=== PATIENT | female | born 1940 | race Caucasian/White ===

== ENCOUNTER 2018-05-06 08:30 | Day surgery (SDC) | payer OTHER | END 2018-05-06 16:45 | disposition home or self-care (01) | LOC: AMB-ENDOS 08:30 | DX: K62.4 Stenosis of anus and rectum (principal) ==

== ENCOUNTER 2018-07-14 05:20 | Day surgery (SDC) | payer OTHER | END 2018-07-14 10:10 | disposition home or self-care (01) | LOC: AMB-ENDOS 05:20 | DX: K57.30 Diverticulosis of large intestine without perforation or abscess without bleeding (principal); R19.8 Other specified symptoms and signs involving the digestive system and abdomen; K91.89 Other postprocedural complications and disorders of digestive system; R19.5 Other fecal abnormalities ==

== ENCOUNTER 2018-07-16 10:32 | Inpatient (IN) | payer OTHER ==
[~2018-07-16] VITALS: Ht 160 cm; Wt 67.1 kg
[2018-07-22] MEDS ORDERED: ATORVASTATIN CA40 MG PO (10:02)
[2018-07-22] MEDS ORDERED: ADRENOID CAPSU1 EACH PO (10:03)
[2018-07-22] MEDS ORDERED: VITAMIN D5000 UNIT PO (10:03)
[2018-07-31] MEDS ORDERED: ELIQUIS2.5 MG PO (08:22)
[2018-07-31] MEDS ORDERED: PERCOCET 5-3251 EACH PO (08:22)
[2018-07-31] MEDS ORDERED: CEFADROXIL500 MG PO (08:22)
== END 2018-07-31 14:08 | DRG 470 ==
LOC: SURH 07-28 05:00 → O/R 07-28 05:00 → SURH 07-28 07:30
PROVIDERS: Orthopaedic Surgery
PROC: 0MNP0ZZ Release Left Knee Bursa and Ligament, Open Approach (ICD-10-PCS; 2018-07-28)
PROC: 0SRD0J9 Replacement of Left Knee Joint with Synthetic Substitute, Cemented, Open Approach (ICD-10-PCS; principal; 2018-07-28 16:00)
DX: M17.12 Unilateral primary osteoarthritis, left knee (principal); M81.0 Age-related osteoporosis without current pathological fracture

== ENCOUNTER 2018-11-11 05:00 | Day surgery (SDC) | payer OTHER ==
[~2018-11-11 05:00] MED LIST: ADRENOID CAPSU1 EACH PO; ATORVASTATIN CA40 MG PO; CEFADROXIL500 MG PO; ELIQUIS2.5 MG PO; PERCOCET 5-3251 EACH PO; VITAMIN D5000 UNIT PO
== END 2018-11-11 09:15 | disposition home or self-care (01) ==
LOC: AMB-ENDOS 05:00
DX: K64.8 Other hemorrhoids (principal)